=== PATIENT | male | born 1965 | race Caucasian/White ===

== ENCOUNTER 2017-07-22 11:50 | Emergency (ER) | END 2017-07-22 14:39 | disposition home or self-care (01) ==

== ENCOUNTER 2017-07-23 11:40 | Emergency (ER) | END 2017-07-23 15:42 | disposition home or self-care (01) ==

== ENCOUNTER 2018-09-01 15:50 | Emergency (ER) | payer MEDICARE, MEDICAID ==
[~2018-09-01] VITALS: Ht 175.3 cm; Wt 79.8 kg
[~2018-09-01 15:50] MED LIST: BUTA1CAP38 PO; TRAM50TA2 PO
[2018-09-01 15:56] VITALS: Ht 175.3 cm; Wt 79.8 kg
[2018-09-01] MEDS ORDERED: LIDOCAINE 1% (MPF) 5 ML VIAL INFIL ONE (17:30)
[2018-09-01] MEDS ORDERED: DIPHTH/TET/ACEL PERTUSS (ADULT) 0.5 ML VIAL IM* ONE (17:30)
[2018-09-01] MEDS ORDERED: STERILE WATER 1L IRRIG BTL IRR STA (18:19)
[2018-09-01 19:27] VITALS: BP 148/86; PULSE 71; RESP 18
[2018-09-01] MEDS ORDERED: BACITRACIN 0.9 GM OINT TOP ONE (19:30)
--- NOTE | 2018-09-01 22:24 | ERD ---
ER Documentation Chief Complaint Chief Complaint pt c/o lac to left hand 30 mins ago with sheet metal, dressing in place HPI 52 year-old [male] coming in today with Chief Complaint: Laceration History of Present Illness: Patient reporting laceration 30 minutes prior to arrival with sheet metal. Patient reports cleaning the wound with hydrogen peroxide, alcohol, soap. Bleeding controlled, gauze covering wound. Last tetanus approximately 5 years ago. Review of systems: All systems were reviewed and are negative except for what is indicated in the history of present illness. Past Medical History: PTSD Social History: [Patient denies alcohol, elicit drug use]; POSITIVE TOBACCO Medications: Seroquel Allergies: [Reviewed as documented in Nursing Notes] Social Concerns: Denies ROS All systems reviewed and are negative except as per history of present illness. Medications Home Meds Active Scripts Jnlydhkrby-Lpadaanuqyrqc-Nhudxrxn* (Fioricet*) 50-300-40 Mg Capsule, 1 CAP PO Q4H PRN for HEADACHE, #30 CAP Prov:SANDRINE SHANNON DO 07/23/17 Tramadol HCl (Tramadol HCl) 50 Mg Tablet, 50 MG PO Q6 PRN for PAIN, #20 TAB Prov:EMEKA JIN MD 07/22/17 Allergies Allergies: Coded Allergies: codeine (Verified Allergy, Unknown, ''Closes my trach", 07/23/17) diazepam (Verified Allergy, Unknown, "Closes my trach", 07/23/17) PMhx/Soc History of Surgery: No Anesthesia Reaction: No Hx Neurological Disorder: No Hx Respiratory Disorders: No Hx Cardiac Disorders: No Hx Psychiatric Problems: No Hx Miscellaneous Medical Probl: No Hx Alcohol Use: No Hx Substance Use: No Hx Tobacco Use: No Smoking Status: Current every day smoker FmHx Family History: No diabetes, No coronary disease Physical Exam Vitals Vital Signs Date Temp Pulse Resp B/P (MAP) Pulse Ox O2 O2 Flow FiO2 Time Delivery Rate 09/01/18 96.7 71 18 148/86 98 Room Air 19:27 (106) 09/01/18 97.6 56 18 132/89 96 15:56 (103) Physical Exam Const: No acute distress Head: Atraumatic Eyes: Normal Conjunctiva ENT: Normal External Ears, Nose and Mouth. Neck: Full range of motion. No meningismus. Resp: Clear to auscultation bilaterally Cardio: Regular rate and rhythm, no murmurs Abd: Soft, non tender, non distended. Normal bowel sounds Skin: No petechiae or rashes Back: No midline or flank tenderness Ext: No cyanosis, or edema; 3 cm laceration noted to palmar aspect of left hand starting between fourth and fifth finger and extending to palm Neur: Awake and alert Psych: Normal Mood and Affect Results 24 hrs Current Medications Medications Dose Sig/Sienna Start Time Status Last (Trade) Ordered Route PRN Stop Time Admin Dose Reason Admin Diphtheria/ 0.5 ml ONCE ONCE 09/01/18 DC 09/01/18 Tetanus/Acell IM* 17:30 17:32 Pertussis 09/01/18 17:31 (Adacel) Lidocaine 5 ml ONCE ONCE 09/01/18 DC (Xylocaine INFIL 17:30 1% (Mpf)) 09/01/18 17:31 Sterile 1,000 ml ONCE STAT 09/01/18 DC Water IRR 18:19 (Water 09/01/18 18:23 Sterile For Irrigation) Bacitracin 1 applic ONCE ONCE 09/01/18 DC (Bacitracin TOP 19:30 Oint (Ud)) 09/01/18 19:31 Procedures/MDM Patient with complaint of laceration ED course includes a thorough examination and history; tetanus prophylaxis. Low suspicion for neurovascular compromise or tendon injury. Patient is able to move hand and all fingers without difficulty. Otherwise healthy patient presenting with constellation of symptoms likely representing uncomplicated laceration as characterized by history, physical exam findings. Patient denies x-ray to determine if foreign body is present. Risk and benefits explained. ED course: Laceration Repair by me: Time out for local anesthesia at 1815. Suture repair took place at 1850 using sterile technique. Anesthesia: 1% lidocaine locally Location: left hand Tendon/Joint/Nerves: No injury Foreign body: None detected after copious irrigation and exploration Technique: Simple Interrupted Sutures Complexity: No subcutaneous sutures/mucosal repair/edge excision Post Closure Length: 3 cm Patient's bleeding was easily controlled in the department and there is no indication of anemia. No evidence of compartment syndrome, neurologic injury, vascular injury, open joint, tendon laceration, or foreign body. Patient is appropriate for outpatient follow up. ------ No respiratory distress, otherwise relatively well appearing and nontoxic. Patient educated on diagnoses, prescriptions, follow-up care, return precautions. Strict return precautions given for worsening condition; questions answered discharge. Disposition for discharge with followup in 2-3 days with PCP/clinic for wound check. Removal of sutures in 10-14 days. Educated on good hand hygiene, keeping wound clean and covered. Patient given for signs of infection. Departure Diagnosis: Primary Impression: Laceration of hand without complication, excluding fingers Encounter type: initial encounter Laterality: left Qualified Codes: S61.412A - Laceration without foreign body of left hand, initial encounter Condition: Stable Patient Instructions: Laceration, Hand [facility] Usted se broderick hecho un examen mdico de control que le indica que no est en vicky condicin que requiera tratamiento urgente en el Departamento de Emergencia. Un estudio ms profundo y el tratamiento de jansen condicin pueden esperar sin ningn riesgo hasta que usted sea atendida/o en el consultorio de jansen mdico o vicky clnica. Es responsabilidad suya arreglar vicky rabia para el seguimiento del vonnie. MANEJO DE CONDICIONES NO URGENTES EN EL FUTURO 1) Si usted tiene un mdico de atencin primaria: Usted debera llamar a jansen mdico de atencin primaria antes de venir al departamento de emergencia. Despus de las horas de consultorio, jansen doctor o jansen asociado/a est disponible por telfono. El mdico o enfermero de ryley en el servicio telefnico puede asesorarle por lamine medio para atender el problema, o vonnie contrario se puede programar vicky rabia. 2) Si usted no tiene un mdico de atencin primaria: Llame al mdico o clnica de referencia que aparece abajo mihaela las horas de consultorio para hacer vicky rabia para que le vean. CLINICAS: [facility] 357 [phone] [id number] [facility] 791 [phone] [id number] [facility] [id number] [facility] [phone] [address] [facility] [place] 588 [phone] [facility] [phone] [address] [facility]. [facility] YOU HAVE RECEIVED A MEDICAL SCREENING EXAM AND THE RESULTS INDICATE THAT YOU DO NOT HAVE A CONDITION THAT REQUIRES URGENT TREATMENT IN THE EMERGENCY DEPARTMENT. FURTHER EVALUATION AND TREATMENT OF YOUR CONDITION CAN WAIT UNTIL YOU ARE SEEN IN YOUR DOCTORS OFFICE WITHIN THE NEXT 1-2 DAYS. IT IS YOUR RESPONSIBILITY TO MAKE AN APPOINTMENT FOR FOLOW-UP CARE. IF YOU HAVE A PRIMARY DOCTOR --you should call your primary doctor and schedule and appointment IF YOU DO NOT HAVE A PRIMARY DOCTOR YOU CAN CALL OUR PHYSICIAN REFERRAL HOTLINE AT . IF YOU CAN NOT AFFORD TO SEE A PHYSICIAN YOU CAN CHOSE FROM THE FOLLOWING [facility] INSTITUTIONS: [facility] [address] [place] [address] [facility] [address] [place] [address] [facility] [address] [place] [address] Additional Instructions: Call your primary care doctor TOMORROW for an appointment during the next 2-3 days.See the doctor sooner or return here if your condition worsens before your appointment time. Wound check in 2-3 days; Removal in 10-14 days. Keep wound clean and dry. Use Dial antibacterial soap 3 times a day or when he gets contaminated. Keep wound covered with clean dressings. Seek medical attention if you notice signs of infection including pus discharge, increased p ain, increased redness. BE NICOLE NP Sep 01, 2018 22:24
== END 2018-09-01 19:32 | disposition home or self-care (01) ==
LOC: FTE 15:50
DX: S61.412A Laceration without foreign body of left hand, initial encounter (principal); W26.8XXA Contact with other sharp object(s), not elsewhere classified, initial encounter; Y92.9 Unspecified place or not applicable; Z23 Encounter for immunization
CPT/HCPCS: 90471; 90715